=== PATIENT | female | born 1975 | race American Indian/Alaskan Native ===

== ENCOUNTER 2019-10-06 18:12 | Emergency (ER) | payer SELFPAY ==
[2019-10-06 18:36] VITALS: BP 132/86
--- NOTE | 2019-10-06 20:58 | Emergency Department Report ---
Chief Complaint: Sore Throat Stated Complaint: THROAT SWOLLEN Time Seen by Provider: 10/06/19 20:53 - HPI History of Present Illness: 43 y/o female comes in for tonsil swelling time 2 days. Last vomited Saturday last fever Saturday. Coughing has taken cold medication over the counter. - Exam Vital Signs: Vital Signs 10/06/19 18:25 Temperature 99.2 F Pulse Rate 87 Respiratory 16 Rate Blood Pressure 132/86 O2 Sat by Pulse 98 Oximetry Physical Exam: axo times 3 NAD non toxic Heent oral moist tonsils no exudates no swelling patent MSE screening note: Focused history and physical exam performed. Due to findings the following was ordered: 43 y/o female comes in for tonsil swelling time 2 days. Last vomited Saturday last fever Saturday. Coughing has taken cold medication over the counter. Recommends to take IB or Tylenol. Take Robitussin or Mucinex. Follow up with a PCP. Referral to Dr. Hagan ED Disposition for [facility] [place]position: MED SCREENING EXAM-LEFT Is pt being admited?: No Does the pt Need Aspirin: No Condition: Stable Additional Instructions: Recommends to take IB or Tylenol. Take Robitussin or Mucinex. Follow up with a PCP. Referral to Dr. Hagan Referrals: LUBA GUAJARDO MD [Staff Physician] - 3-5 Days
== END 2019-10-06 22:45 | disposition left against medical advice (07) ==
LOC: ED 18:12
DX: R05 Cough (principal); Z53.21 Procedure and treatment not carried out due to patient leaving prior to being seen by health care provider